=== PATIENT | female | born 1995 | race African-American/Black ===

== ENCOUNTER 2020-05-16 10:49 | Emergency (ER) | payer BC, OTHER ==
[2020-05-16 10:56] VITALS: BP 142/78; TEMP 97; BMI 52.4
--- NOTE | 2020-05-16 11:25 | PDOC ---
History of Present Illness - General Chief Complaint: Pain Stated Complaint: ABD. PAIN Time Seen by Provider: 05/16/20 11:22 History Source: Patient - History of Present Illness Timing/Duration: reports: constant Past History - Medical History Allergies/Adverse Reactions: Allergies Allergy/AdvReac Type Severity Reaction Status Date / Time No Known Allergies Allergy Verified 05/16/20 11:02 Home Medications: Ambulatory Orders Ibuprofen [Motrin -] 600 mg PO TID #21 tablet 05/21/15 - Reproductive History Is Patient Now?: No - Psycho-Social/Smoking History Smoking History: Never smoked - Substance Abuse Hx (Audit-C & DAST Scrn) How often the patient has a drink containing alcohol: Monthly or less Score: In Men: 4 or > Positive; In Women: 3 or > Positive: 1 Screen Result (Pos requires Nsg. Audit-10AR): Negative In the last yr the pt used illegal drug/Rx for NonMed reason: No Score: Yes response is considered Positive: 0 Screen Result (Positive result requires Nsg. DAST-10): Negative Review of Systems - Review of Systems Constitutional: No: Chills, Fever Respiratory: No: Cough, Shortness of Breath Cardiac (ROS): No: Chest Pain, Palpitations ABD/GI: No: Blood Streaked Bowels, Constipated, Diarrhea, Nausea, Rectal Bleeding, Tarry Stools : No: Burning, Dysuria, Flank Pain, Hematuria *Physical Exam - Vital Signs Last Vital Signs Temp Pulse Resp BP Pulse Ox 97.0 F L 120 H 18 142/78 100 05/16/20 10:54 05/16/20 10:54 05/16/20 10:54 05/16/20 10:54 05/16/20 10:54 - Physical Exam General Appearance: Yes: Appropriately Dressed. No: Apparent Distress HEENT: positive: Normal Voice Neck: positive: Supple Respiratory/Chest: positive: Lungs Clear, Normal Breath Sounds. negative: Respiratory Distress Cardiovascular: positive: S1, S2, Tachycardia Gastrointestinal/Abdominal: positive: Tender (minimal ttp to epigastrium, RUQ and LUQ, neg murpheys, no lower abd ttp), Soft Musculoskeletal: negative: CVA Tenderness Integumentary: positive: Dry, Warm Neurologic: positive: Fully Oriented, Alert, Abnormal Cranial NS ED Treatment Course - LABORATORY CBC & Chemistry Diagram: 05/16/20 12:06 05/16/20 12:06 Medical Decision Making - Medical Decision Making 05/16/20 11:23 25 yo morbidly obesed female, stopped taking her OCPs 10/14, p/w upper abdominal pain. Patient states for the past 4 days has had mostly constant upper abdominal pain that is present to epigastrium, RUQ and LUQ but worse on the R side. Unable to describe pain and reports that pain is getting better, was a 10 initially and now a 7-8. Pain better when supine and unchanged with food. No nausea, vomiting, bloating, excessive belching or change in bowel movements. Had ? 2 e/o dysuria several days ago, since resolved. No foul odor, flank pain. No history of similar pain. No recent change to diet. see exam Upper abd pain of unclear etiology at this time Exam reveals a morbidly obesed female, tachy in the 120s but in NAD w/ largely unimpressive abd exam No resp/cards sxs -ekg -cxr -labs -dispo pending 05/16/20 13:09 Labs, RUQ sono and CXR all unremarkable. Repeat HR now 96 s/p ~200L of IVF. Patient now states she does tend to get anxious when she comes to the ER. Pain since improved w/ meds. Pending UA for dispo 05/16/20 13:41 UA and preg neg. Stable w/ benign abd on rpt exam. Dc w/ PMD f/u if pain persists Discharge - Discharge Information Problems reviewed: Yes Clinical Impression/Diagnosis: Abdominal pain Qualifiers: Abdominal location: upper abdomen, unspecified Qualified Code(s): R10.10 - Upper abdominal pain, unspecified Condition: Improved Disposition: HOME - Follow up/Referral Referrals: Rl Bashir [Primary Care Provider] - - Patient Discharge Instructions Patient Printed Discharge Instructions: DI for Abdominal Pain-Adult Additional Instructions: The cause of your pain is unclear as your labs and ultrasound were unremarkable. Take Tylenol as needed for pain and if pain persist, please follow-up with your primary care physician - Post Discharge Activity Work/Back to School Note: Back to School
[2020-05-16] MEDS ORDERED: MAG HYDROX/AL HYDROX/SIMETH -MYLANTA- ORAL SUSPENSION PO ONE (11:26)
[2020-05-16] MEDS ORDERED: ACETAMINOPHEN 325 MG TABLET (FP) PO ONE (11:26)
[2020-05-16] MEDS ORDERED: SODIUM CHLORIDE 1,000 ML IV STA (11:36)
[2020-05-16] MEDS ORDERED: ACETAMINOPHEN 325 MG TABLET (FP) ONE (11:45)
[2020-05-16] MEDS ORDERED: MAG HYDROX/AL HYDROX/SIMETH 30 ML UNIT-DOSE CUP ONE (11:46)
[2020-05-16 12:24] LABS: BASO % 0.9 % (0-2.0); EOS % 8.6 % (0-4.5); HEMATOCRIT 32.4 % (32.4-45.2); HEMOGLOBIN 10.9 GM/dL (10.7-15.3); LYMPH % 34.3 % (8-40); MCH 30.8 pg (25.7-33.7); MCHC 33.6 g/dl (32.0-36.0); MEAN CELL VOLUME 91.6 fl (80-96); MEAN PLT VOLUME 8.8 fl (7.5-11.1); MONO % 9.6 % (3.8-10.2); NEUT % 46.6 % (42.8-82.8); PLATELET COUNT 228 K/MM3 (134-434); RBC 3.54 M/mm3 (3.60-5.2); WHITE BLOOD COUNT 5.2 K/mm3 (4.0-10.0)
[2020-05-16 12:55] LABS: ALBUMIN 3.8 g/dl (3.4-5.0); BILIRUBIN,TOTAL 0.7 mg/dL (0.2-1); BLOOD UREA NITROGEN 8.8 mg/dL (7-18); CALCIUM 8.8 mg/dL (8.5-10.1); CREATININE 0.9 mg/dL (0.55-1.3); POTASSIUM 3.8 mmol/L (3.5-5.1); TOT PROT 7.3 g/dl (6.4-8.2)
--- OUTSIDE RECORDS SUMMARY | 2020-05-16 13:13 | XMS ---
:1995 Author Organization [facility] Support Name Relationship Address Phone JOVANNY, STUDENT Unavailable Unavailable Unavailable JOVANNY Unavailable Unavailable Unavailable [employer]OR [employer] [address] [place] [address] Re-disclosure Warning The records that you are about to access may contain information from federally- assisted alcohol or drug abuse programs. If such information is present, then the following federally mandated warning applies: This information has been disclosed to you from records protected by federal confidentiality rules (42 CFR part 2). The federal rules prohibit you from making any further disclosure of this information unless further disclosure is expressly permitted by the written consent of the person to whom it pertains or as otherwise permitted by 42 CFR part 2. A general authorization for the release of medical or other information is NOT sufficient for this purpose. The Federal rules restrict any use of the information to criminally investigate or prosecute any alcohol or drug abuse patient.The records that you are about to access may contain highly sensitive health information, the redisclosure of which is protected by Article 27-F of the [facility] Public Health law. If you continue you may haveaccess to information: Regarding HIV / AIDS; Provided by facilities licensed or operated by the [facility] Office of Mental Health; or Provided by the [facility] Office for People With Developmental Disabilities. If such information is present, then the following [facility] mandated warning applies: This information has been disclosed to you from confidential records which are protected by state law. State law prohibits you from making any further disclosure of this information without the specific written consent of the person to whom it pertains, or as otherwise permitted by law. Any unauthorized further disclosure in violation of state law may result in a fine or mcc sentence or both. A general authorization for the release of medical or other information is NOT sufficient authorization for further disclosure. Insurance Providers Payer name Policy type Policy ID Covered Covered green party's Policy P radhika / Coverage green party ID relationship to [employer] type [employer] G[employer] PPO [id number] FA [id number] BC PPO [id number] FA [id number] SELF PAY SP INSURANCE GHI [id number] [id number] FA [id number] BC PPO [id number] FA [id number]
[2020-05-16 13:25] LABS: PH,URINE 5.5 (5.0-8.0); URINE APPEARANCE CLEAR; URINE BILIRUBIN NEGATIVE (NEGATIVE); URINE COLOR YELLOW; URINE GLUCOSE (UA) NEGATIVE (NEGATIVE); URINE KETONE NEGATIVE (NEGATIVE); URINE LEUK ESTERASE NEGATIVE (NEGATIVE); URINE NITRITE NEGATIVE (NEGATIVE); URINE PROTEIN NEGATIVE (NEGATIVE)
[2020-05-16 13:27] LABS: HCG,QUALITATIVE URINE Negative
[2020-05-16 14:10] VITALS: PULSE 96
== END 2020-05-16 14:10 | disposition home or self-care (01) ==
LOC: JER 10:49
PROC: 3E0337Z Introduction of Electrolytic and Water Balance Substance into Peripheral Vein, Percutaneous Approach (ICD-10-PCS; principal; 2020-05-16)
DX: R10.10 Upper abdominal pain, unspecified (principal)
CPT/HCPCS: 36415; 71046-TC-FY; 76705-TC; 80053; 81003; 83690; 84703; 85025; 87086; 99285-25

== ENCOUNTER 2021-09-02 02:07 | Emergency (ER) | payer OTHER ==
[2021-09-02 02:31] VITALS: BP 155/89; PULSE 102; TEMP 97.4; BMI 51.7
== END 2021-09-02 08:00 | disposition home or self-care (01) ==
LOC: JER 02:07
DX: S69.92XA Unspecified injury of left wrist, hand and finger(s), initial encounter (principal); W19.XXXA Unspecified fall, initial encounter
CPT/HCPCS: 73130-TC-LT-FY; 73140-TC-LT-FY; 99283-25